=== PATIENT | male | born 1940 | race Caucasian/White ===

== ENCOUNTER 2022-09-29 05:50 | Observation (INO) | payer MEDICARE ==
[2022-09-29] MEDS ORDERED: Nitroglycerin 0.4 MG TAB (25 Tab Bottle) SL PRN (06:42)
[2022-09-29 07:28] VITALS: BMI 32.9
[2022-09-29 07:45] LABS: Cardiac Risk 3.5 (Less than 4.5)
[2022-09-29 07:47] LABS: Troponin I Less than 0.010 ng/mL (< 0.028)
[2022-09-29] MEDS: Tamsulosin HCl 0.4 MG CAP PO SCH (09:02)
[2022-09-29] MEDS: Carvedilol 6.25 MG TAB PO SCH ×2 (09:02→15:39)
[2022-09-29] MEDS: Loratadine 10 MG TAB PO SCH (09:02)
[2022-09-29] MEDS: Furosemide 20 MG TAB PO SCH (09:02)
[2022-09-29] MEDS: Cholecalciferol 1,000 UNITS (25 MCG) TAB PO SCH (09:02)
[2022-09-29] MEDS: Sertraline 25 MG TAB PO SCH (09:02)
[2022-09-29] MEDS: metFORMIN 500 MG TAB PO SCH ×2 (09:03→20:50)
[2022-09-29] MEDS: Aspirin Chewable 81 MG TAB PO SCH (09:03)
[2022-09-29] MEDS: Finasteride 5 MG TAB PO SCH (09:03)
[2022-09-29] MEDS: Donepezil HCl 5 MG TAB PO SCH (09:03)
[2022-09-29 11:21] LABS: Troponin I Less than 0.010 ng/mL (< 0.028)
[2022-09-29] MEDS ORDERED: Atorvastatin Calcium 40 MG TAB PO SCH (21:00)
[2022-09-30 08:57] LABS: Anion Gap 16 mmol/L (10-20); BUN (Urea Nitrogen) 19 mg/dL (8.4-25.7); Calc. Creatinine Clearance 76 mL/min (70-130); Calcium 9.2 mg/dL (7.8-10.44); Carbon Dioxide 23 mmol/L (23-31); Chloride 105 mmol/L (98-107); Estimated GFR 59; Glucose 145 mg/dL (83-110); Potassium 3.9 mmol/L (3.5-5.1); Sodium 140 mmol/L (136-145)
[2022-09-30] MEDS: Loratadine 10 MG TAB PO SCH (09:03)
[2022-09-30] MEDS: Carvedilol 6.25 MG TAB PO SCH (09:03)
[2022-09-30] MEDS: Tamsulosin HCl 0.4 MG CAP PO SCH (09:03)
[2022-09-30] MEDS: Cholecalciferol 1,000 UNITS (25 MCG) TAB PO SCH (09:03)
[2022-09-30] MEDS: Sertraline 25 MG TAB PO SCH (09:03)
[2022-09-30] MEDS: Aspirin Chewable 81 MG TAB PO SCH (09:03)
[2022-09-30] MEDS: metFORMIN 500 MG TAB PO SCH (09:04)
[2022-09-30] MEDS: Donepezil HCl 5 MG TAB PO SCH (09:04)
[2022-09-30] MEDS: Furosemide 20 MG TAB PO SCH (09:04)
[2022-09-30] MEDS: Finasteride 5 MG TAB PO SCH (09:04)
[2022-09-30 14:17] VITALS: BP 187/89; TEMP 97.6
== END 2022-09-30 17:28 | disposition home or self-care (01) ==
LOC: CSHTELE 06:27 → UNDOADMOB 06:27 → CSHTELE 06:43
PROVIDERS: ADMIT Internal Medicine; ATTEND Family Medicine
DX: I25.10 Atherosclerotic heart disease of native coronary artery without angina pectoris (principal); I48.0 Paroxysmal atrial fibrillation; I10 Essential (primary) hypertension; E78.5 Hyperlipidemia, unspecified; I08.0 Rheumatic disorders of both mitral and aortic valves; K21.9 Gastro-esophageal reflux disease without esophagitis; G30.9 Alzheimer's disease, unspecified; E11.9 Type 2 diabetes mellitus without complications; Z87.891 Personal history of nicotine dependence; Z79.84 Long term (current) use of oral hypoglycemic drugs; Z79.899 Other long term (current) drug therapy; Z79.82 Long term (current) use of aspirin
CPT/HCPCS: 36415; 36416; 80048; 80061; 93005; 93010; 93306; 94760; 96372; G0378; J1650